=== PATIENT | female | born 1930 | race Caucasian/White ===

== ENCOUNTER 2018-01-13 07:19 | Outpatient (CLI) | payer MEDICARE ==
--- NOTE | 2018-01-13 09:03 | ULT ---
HEPATIC ULTRASOUND WITH DOPPLER: Date: 01-13-18 Provided Clinical History: Abdominal pain. FINDINGS: The visualized abdominal aorta, IVC, and pancreas appear normal. The liver demonstrates no mass or in trahepatic biliary ductal dilatation. Common duct is not dilated. The gallbladder is not visualized c ompatible with provided clinical history of prior cholecystectomy. The spleen is not enlarged and dem onstrates no significant abnormality . Color doppler and spectral analysis of the hepatic arterial, hepatic portal, hepatic venous, splenic arterial and splenic venous waveforms demonstrates normal direction of flow. IMPRESSION: Unremarkable hepatic ultrasound with doppler. POS: [facility]
== END 2018-01-13 07:20 | disposition home or self-care (01) ==
LOC: BICULT 07:19
PROVIDERS: ATTEND Internal Medicine
DX: R10.11 Right upper quadrant pain (principal); R11.0 Nausea; R10.13 Epigastric pain; Z90.49 Acquired absence of other specified parts of digestive tract
CPT/HCPCS: 76705

== ENCOUNTER 2018-08-05 10:01 | Observation (INO) | payer MEDICARE ==
[2018-08-05] MEDS ORDERED: Meclizine HCl 25 MG TAB ONE (10:33)
[2018-08-05] MEDS ORDERED: Nitroglycerin 2% Ointment 1 INCH/1 GM Packet ONE (10:33)
[2018-08-05 10:39] LABS: #Basophils 0.1 thou/uL (0.0-0.2); #Monocytes 0.3 thou/uL (0.11-0.59); #Neutrophils 2.8 thou/uL (1.40-6.50); %Basophils 1.4 % (0.0-1.0); %Eosinophils 1.1 % (0.0-10.0); %Lymphocytes 23.5 % (21.0-51.0); %Monocytes 6.2 % (0.0-10.0); %Neutrophils 67.7 % (42.0-75.0); Hemoglobin 14.8 g/dL (12.0-16.0); Mean Corpuscular HGB CONC 35.2 g/dL (32.0-36.0); Mean Corpuscular Hemoglobin 34.5 pg (27.0-31.0); Mean Corpuscular Volume 98.1 fL (78.0-98.0); Mean Platelet Volume 8.3 fL (7.4-10.4); Platelet Count 159 thou/uL (130-400); RBC Distribution Width 11.5 % (11.5-14.5); Red Blood Cell (RBC) Count 4.28 mill/uL (4.20-5.40); White Blood Cell (WBC) Count 4.1 thou/uL (4.8-10.8)
--- NOTE | 2018-08-05 10:52 | CT ---
CT Brain WO Con HISTORY: Syncope, dizziness. COMPARISON: None. FINDINGS: There is generalized ventricular and sulcal prominence. There are no signs of intracerebral hemorrhage or extra-axial fluid collections. The mastoid air cells and visualized sinuses are clear. IMPRESSION: No acute intracranial abnormalities.
[2018-08-05] MEDS ORDERED: Labetalol HCl 100 MG/20 ML VIAL ONE (10:58)
[2018-08-05 10:59] LABS: ALT (SGPT) 10 U/L (8-55); AST (SGOT) 16 U/L (5-34); Albumin 4.8 g/dL (3.4-4.8); Alkaline Phosphatase 72 U/L (40-150); Anion Gap 16 mmol/L (10-20); BUN (Urea Nitrogen) 15 mg/dL (9.8-20.1); Bilirubin, Total 0.7 mg/dL (0.2-1.2); CK (CPK) 37 U/L (29-168); Calc. Creatinine Clearance 0 mL/min (70-130); Carbon Dioxide 27 mmol/L (23-31); Chloride 102 mmol/L (98-107); Estimated GFR-MDRD Greater than 90; Globulin 2.6 g/dL (2.4-3.5); Glucose 96 mg/dL (83-110); Potassium 4.8 mmol/L (3.5-5.1); Protein, Total 7.4 g/dL (6.0-8.3); Sodium 140 mmol/L (136-145)
[2018-08-05 13:57] LABS: Troponin I 0.015 ng/mL (< 0.028)
[2018-08-05 16:56] LABS: Troponin I 0.019 ng/mL (< 0.028)
[2018-08-05] MEDS ORDERED: Acetaminophen 325 MG TAB PO SCH (17:45)
[2018-08-05] MEDS: Nitroglycerin 2% Ointment 1 INCH/1 GM Packet TOP SCH ×2 (17:58→23:53)
[2018-08-05] MEDS ORDERED: hydrALAZINE 20 MG/ML VIAL SLOW IVP PRN (20:10)
[2018-08-05] MEDS ORDERED: Acetaminophen 500 MG TAB PO PRN (20:10)
[2018-08-05] MEDS ORDERED: Meclizine HCl 12.5 MG TAB PO PRN (20:15)
--- NOTE | 2018-08-05 23:27 | HP ---
CHIEF COMPLAINT: Dizziness. HISTORY OF PRESENT ILLNESS: The patient is an 88-year-old female with past medical history significant for vertigo and borderline hypertension, who presented to the ER today with complaints of dizziness that began this morning. The patient describes the sensation as if she is spinning in place. She does report mild nausea associated with this sensation. When she sat up in bed this morning , she could not read the numbers on her digital clock secondary to her dizziness. She states the numbers were all blended together. She got out of bed and performed some exercises she had been taught in the past to help combat her vertigo, which included going from seated position to standing multiple times. This did not relieve her symptoms, and she got back in bed and called her son to take her to the emergency room. The patient denies any chest pain or shortness of breath. She had no emesis. She denies any feeling of lightheadedness or presyncope. On arrival to the ER, her blood pressure was significantly elevated with systolic greater than 200. She was given labetalol 10 mg IV, nitroglycerin paste, and one dose of meclizine in the ER. Her blood pressure did continue to trend down. Her dizziness upon my interview is much improved, and her vision changes have resolved at this time. 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 She has been seen by an ENT in the past, and has undergone dizzy and balance therapy in the past as well. Regarding her hypertension, she states that she was on blood pressure medication many years ago; however, she discontinued this on her own and watches her blood pressure at home. She states that readings typically at home read in the one teens systolic. ALLERGIES: SULFA DRUGS. HOME MEDICATIONS: 1. Vitamin B12 injections. 2. Pantoprazole 40 mg daily. PAST MEDICAL HISTORY: Significant for gastritis and GERD. Borderline hypertension as mentioned. Diagnosed benign paroxysmal positional vertigo. PAST SURGICAL HISTORY: Cataract removal, status post 3 left breast biopsies which were benign, and cholecystectomy. FAMILY HISTORY: Noncontributory. SOCIAL HISTORY: The patient has largely enjoyed good health and does live alone. She performs all of her own ADLs. No history of smoking, alcohol use, or illicit drug use. REVIEW OF SYSTEMS: A 12-point review of systems performed and is negative except that stated above. PHYSICAL EXAMINATION: VITAL SIGNS: Blood pressure 138/67, pulse 78, temperature 98, and O2 saturation 97% on room air. GENERAL: The patient is a thin elderly female, well appearing, in no acute distress. HEENT: Head is atraumatic and normocephalic. Mucous membranes are moist. NECK: Supple. No lymphadenopathy. No JVD. 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 CV: S1 and S2. Regular rate and rhythm. No appreciable murmurs, rubs, or gallops. LUNGS: Regular respiratory rate and pattern. Clear to auscultation bilaterally. ABDOMEN: Soft, flat. Positive bowel sounds. Nontender. SKIN: Warm and dry. No rashes. MUSCULOSKELETAL: No joint effusions or deformities. EXTREMITIES: No edema. NEUROLOGIC: Cranial nerves 2 through 12 are intact. The patient is nonfocal. LABORATORY DATA: White blood cell count 4.1, hemoglobin 14.8, hematocrit 41.9, and platelet count 159. Sodium 140, potassium 4.8, BUN 15, and creatinine 0.6. Troponin negative x3. BNP 99. Calcium 10.0. AST, ALT, and alkaline phosphatase all within normal limits. Brain CT, no acute intracranial abnormalities. ASSESSMENT: 1. Dizziness, consistent with benign paroxysmal positional vertigo with temporary vision changes which have resolved. 2. Accelerated hypertension ? contributing to presenting symptoms 3. History of gastritis/gastroesophageal reflux disease. 4. Vitamin B12 deficiency, which is treated. PLAN: Although the patient's symptoms are consistent with BPPV, we will obtain MRI to rule out possible vertebrobasilar CVA. Regarding her blood pressure, we will continue to monitor closely, but likely the patient will need to start an antihypertensive regimen either with low-dose lisinopril or amlodipine. She follows with Dr. Roseanne Mzea who is her PCP. Expect that if her MRI is negative and her symptoms continue to improve, that she will be discharged tomorrow with outpatient ENT followup if MRI is negative. Care of this patient has been discussed with Dr. Enriquez who agrees with the above. Job ID: [id number] MTDD
[2018-08-06] MEDS ORDERED: Lorazepam 2 MG/ML VIAL SLOW IVP PRN (08:09)
[2018-08-06] MEDS ORDERED: Meclizine HCl 12.5 MG TAB PO SCH (10:00)
--- NOTE | 2018-08-06 10:51 | ULT ---
Carotid duplex sonogram HISTORY: Dizziness. Vascular disease. FINDINGS: Right: Scattered plaque. Color and spectral Doppler evaluation, peak systolic velocity of 130 cm/s, a nd IC to CC ratio of 1.2 suggests stenosis within the proximal right ICA to approaches 50%. Antegrade flow is present within the vertebral artery. Left: Scattered plaque. Color and spectral Doppler evaluation, the systolic velocity of 142 cm/s, and IC to CC ratio of 2.0 suggest mild stenosis within the proximal left ICA. Antegrade flow within the vertebral artery. IMPRESSION: Atherosclerosis. Elevated velocities within the proximal portion of each internal carotid artery, greater on the left, where stenosis is estimated at 50-69%. Please consider conventional or CT arteriography for better detail.
--- NOTE | 2018-08-06 12:54 | MRI ---
Exam: Brain MRI without contrast HISTORY: Vision changes. Dizziness. COMPARISON: 12/17/2001 FINDINGS: Calvarial marrow signal intensity: Appropriate T1 signal Gradient echo sequence: No hemorrhage Brain parenchyma: No mass, mass effect or midline shift. Brain volume, age-appropriate. Midline brain parenchymal structures are unremarkable. Cortical riley-white matter differentiation: Preserved Restricted diffusion: Central arterial flow voids are maintained. Absent restricted diffusion White matter signal intensities: T2, FLAIR white matter hyperintensities due to chronic small vessel ischemic changes Bilateral ocular lens implants are noted and appear to be appropriately positioned. Sinuses: Adequate aeration of the paranasal sinuses and mastoid air cells. IMPRESSION: Absent restricted diffusion. No acute infarct.
[2018-08-06] MEDS ORDERED: Lisinopril 5 MG TAB PO SCH (14:00)
[2018-08-06 14:35] VITALS: BMI 19.2
[2018-08-06 16:23] VITALS: BP 121/58; TEMP 98.8
== END 2018-08-06 17:41 | disposition home or self-care (01) ==
LOC: ERS 10:01 → ERHOLD 12:14 → 2SW 15:12
PROVIDERS: ADMIT Internal Medicine; ATTEND Internal Medicine
DX: H81.10 Benign paroxysmal vertigo, unspecified ear (principal); K21.9 Gastro-esophageal reflux disease without esophagitis; I65.23 Occlusion and stenosis of bilateral carotid arteries; I10 Essential (primary) hypertension; Z79.899 Other long term (current) drug therapy; Z88.2 Allergy status to sulfonamides
CPT/HCPCS: 70450; 70551; 80053; 82550; 83880; 84484 ×2; 85025; 93005; 93880; 96374; 96375; 97139; 99285; G0378 ×2; 36415; J0360; J2060; J8499; J8597

== ENCOUNTER 2018-11-10 08:54 | Outpatient (CLI) | payer MEDICARE ==
[2018-11-10 10:15] LABS: Estimated GFR-MDRD - POC Greater than 90
--- NOTE | 2018-11-10 10:36 | CT ---
CT ABDOMEN WITH CONTRAST: 11/10/18 HISTORY: 88-year-old female with mid epigastric pain, R10.13. TECHNIQUE: IV contrast: 70 mL of Isovue 370. Oral contrast: Administered. Pelvis not ordered and not scanned. FINDINGS: Normal liver. No splenomegaly. No hydronephrosis. Bilateral nephrograms are homogeneous, with no cruz d or cystic mass identified. No adrenal nodule. No signs of acute pancreatitis or pancreatic mass. No ascites. No small bowel dilation. Transverse colon and the hepatic and splenic flexures demonstrate no obvious abnormality. No retroperitoneal lymphadenopathy. Atherosclerotic calcification of abdomina l aorta without aneurysm. Lung bases are clear of consolidation and pleural effusion. Surgical clips in the gallbladder fossa. IMPRESSION: 1. Status post cholecystectomy. 2. Otherwise negative. POS: [facility]
== END 2018-11-10 08:55 | disposition home or self-care (01) ==
LOC: BICCT 08:54
PROVIDERS: ATTEND Internal Medicine Gastroenterology
DX: R10.13 Epigastric pain (principal); Z90.49 Acquired absence of other specified parts of digestive tract
CPT/HCPCS: 74160; 82565

== ENCOUNTER 2019-01-01 08:13 | Outpatient (CLI) | payer MEDICARE ==
[2019-01-01 09:01] LABS: Estimated GFR-MDRD - POC Greater than 90
--- NOTE | 2019-01-01 09:45 | MRI ---
MRI BRAIN AND INTERNAL AUDITORY CANALS WITH AND WITHOUT CONTRAST: Date: 01/01/2019 HISTORY: 88-year-old female with bilateral sensorineural hearing loss, vertigo, and dizziness. TECHNIQUE: Multiplanar, multisequence MRI, both whole brain images and thin slices through the IACs, pre and pos t IV injection of gadolinium-based contrast agent. FINDINGS: There is no obstructive hydrocephalus. There is no midline shift or any other evidence of mass effect . There is no extra-axial fluid collection. There is a mild-moderate degree of T2-hyperintensities in the cerebral white matter consistent with chronic ischemic white matter changes due to microvascul ar atherosclerosis. There is no abnormal enhancement, mass, recent hemorrhage, or restricted diffusion. There is no abnormal enhancement, mass, or morphologic abnormality, involving the cerebellopontine an gles, 7th-8th nerve complexes, internal auditory canals, cochleae, vestibules, vestibular aqueducts, or semicircular canals. There is a 4.5 x 3.5 cm mass in the superficial left posterior subcutaneous upper neck with T1 shorte erlinda probably representing a lipoma (Seen only on the large [id number] sagittal T1-weighted sequence of the whole brain). IMPRESSION: 1) mild-moderate chronic ischemic white matter changes. 2) otherwise negative. 3) left posterior upper neck mass, incompletely imaged. Presumably a lipoma. Recommend clinical corre lation.
[2019-01-01] MEDS ORDERED: Gadobenate Dimeglumine 529 MG/1 ML (20ML VIAL) ONE (12:59)
== END 2019-01-01 08:14 | disposition home or self-care (01) ==
LOC: BICMRI 08:13
PROVIDERS: ATTEND Otolaryngology
DX: H90.3 Sensorineural hearing loss, bilateral (principal); R42 Dizziness and giddiness; I67.82 Cerebral ischemia; R22.1 Localized swelling, mass and lump, neck
CPT/HCPCS: 70553; 82565; A9577

== ENCOUNTER 2020-09-14 13:58 | Inpatient (IN) | payer OTHER, MEDICARE ==
[2020-09-14] MEDS ORDERED: Morphine 2 MG/ML VIAL ONE ×2 (15:40→17:37)
[2020-09-14] MEDS ORDERED: Ondansetron PF 4 MG/2 ML Vial ONE (15:40)
[2020-09-14 15:42] LABS: #Lymphocytes 0.6 thou/uL (1.20-3.40); #Monocytes 0.6 thou/uL (0.11-0.59); #Neutrophils 8.5 thou/uL (1.40-6.50); %Basophils 0.3 % (0.0-1.0); %Eosinophils 0.3 % (0.0-10.0); %Lymphocytes 6.2 % (21.0-51.0); %Monocytes 5.7 % (0.0-10.0); %Neutrophils 87.5 % (42.0-75.0); Hemoglobin 13.9 g/dL (12.0-16.0); Mean Corpuscular HGB CONC 35.4 g/dL (32.0-36.0); Mean Corpuscular Hemoglobin 34.9 pg (27.0-31.0); Mean Corpuscular Volume 98.6 fL (78.0-98.0); Mean Platelet Volume 8.1 fL (7.4-10.4); Platelet Count 141 thou/uL (130-400); RBC Distribution Width 11.6 % (11.5-14.5); Red Blood Cell (RBC) Count 3.99 mill/uL (4.20-5.40); White Blood Cell (WBC) Count 9.7 thou/uL (4.8-10.8)
[2020-09-14 16:03] LABS: ALT (SGPT) 13 U/L (8-55); AST (SGOT) 17 U/L (5-34); Albumin 4.5 g/dL (3.4-4.8); Alkaline Phosphatase 64 U/L (40-110); Anion Gap 14 mmol/L (10-20); BUN (Urea Nitrogen) 19 mg/dL (9.8-20.1); Bilirubin, Total 0.6 mg/dL (0.2-1.2); Calc. Creatinine Clearance 0 mL/min (70-130); Calcium 9.4 mg/dL (7.8-10.44); Carbon Dioxide 25 mmol/L (23-31); Chloride 102 mmol/L (98-107); Globulin 2.7 g/dL (2.4-3.5); Glucose 126 mg/dL (83-110); Protein, Total 7.2 g/dL (5.8-8.1); Sodium 137 mmol/L (136-145)
[2020-09-14] MEDS ORDERED: Dextrose 5% in Water 1,000 ML IV PRN (16:23)
[2020-09-14] MEDS ORDERED: Ondansetron ODT 4 MG TAB PO PRN (16:23)
[2020-09-14] MEDS ORDERED: Dextrose 50% Abboject 50 ML SYRINGE SLOW IVP PRN (16:23)
[2020-09-14] MEDS ORDERED: Ondansetron PF 4 MG/2 ML Vial IVP PRN (16:23)
[2020-09-14] MEDS ORDERED: Morphine 2 MG/ML VIAL SLOW IVP PRN (16:30)
[2020-09-14] MEDS ORDERED: hydrALAZINE 20 MG/ML VIAL SLOW IVP PRN (16:30)
[2020-09-14] MEDS ORDERED: Cyclobenzaprine 10 MG TAB PO PRN (16:42)
[2020-09-14] MEDS ORDERED: traMADol HCl 50 MG TAB PO PRN (16:42)
[2020-09-14 17:32] LABS: Phosphorus 2.7 mg/dL (2.3-4.7)
[2020-09-14] MEDS: Famotidine 20 MG TAB PO SCH (20:41)
[2020-09-14] MEDS: Senokot S 8.6-50 MG TAB PO SCH (20:52)
[2020-09-14] MEDS: Ketorolac Tromethamine 30 MG/ML VIAL IVP SCH ×2 (20:52→23:29)
[2020-09-14] MEDS: traMADol HCl 50 MG TAB PO SCH ×2 (20:52→23:16)
[2020-09-14] MEDS: Acetaminophen 500 MG TAB PO SCH ×2 (20:52→23:15)
[2020-09-14] MEDS ORDERED: CEFAZOLIN 2 GM in Premix Bag 1 BAG IVPB SCH (21:30)
[2020-09-14] MEDS ORDERED: Sodium Chloride 0.9% 1,000 ML IV SCH (23:59)
[2020-09-15] MEDS: traMADol HCl 50 MG TAB PO SCH ×4 (05:26→21:53)
[2020-09-15] MEDS: Acetaminophen 500 MG TAB PO SCH ×4 (05:26→21:54)
[2020-09-15] MEDS: Ketorolac Tromethamine 30 MG/ML VIAL IVP SCH ×3 (05:45→17:34)
[2020-09-15 05:46] LABS: #Eosinphils 0.1 thou/uL (0.0-0.7); #Lymphocytes 0.9 thou/uL (1.20-3.40); #Monocytes 0.7 thou/uL (0.11-0.59); #Neutrophils 3.2 thou/uL (1.40-6.50); %Basophils 0.5 % (0.0-1.0); %Eosinophils 1.7 % (0.0-10.0); %Lymphocytes 17.7 % (21.0-51.0); %Monocytes 14.3 % (0.0-10.0); %Neutrophils 65.8 % (42.0-75.0); Hemoglobin 12.1 g/dL (12.0-16.0); Mean Corpuscular HGB CONC 34.3 g/dL (32.0-36.0); Mean Corpuscular Hemoglobin 34.3 pg (27.0-31.0); Mean Platelet Volume 7.8 fL (7.4-10.4); Platelet Count 122 thou/uL (130-400); RBC Distribution Width 11.5 % (11.5-14.5); Red Blood Cell (RBC) Count 3.51 mill/uL (4.20-5.40); White Blood Cell (WBC) Count 4.9 thou/uL (4.8-10.8)
[2020-09-15 06:56] LABS: SARS-CoV-2 NAA Rapid Test Not Detected (NotDetected)
[2020-09-15 07:07] LABS: Calcium 8.7 mg/dL (7.8-10.44); Chloride 102 mmol/L (98-107); Potassium 4.1 mmol/L (3.5-5.1); Sodium 136 mmol/L (136-145)
[2020-09-15 07:08] LABS: Glucose 108 mg/dL (83-110)
[2020-09-15 07:09] LABS: Anion Gap 6 mmol/L (10-20); Carbon Dioxide 32 mmol/L (23-31)
[2020-09-15 07:11] LABS: Calc. Creatinine Clearance 56 mL/min (70-130); Phosphorus 3.1 mg/dL (2.3-4.7)
[2020-09-15 07:12] LABS: BUN (Urea Nitrogen) 14 mg/dL (9.8-20.1)
[2020-09-15 07:13] LABS: Magnesium 1.9 mg/dL (1.6-2.6)
[2020-09-15] MEDS: Famotidine 20 MG TAB PO SCH ×2 (08:08→21:53)
[2020-09-15] MEDS: Polyethylene Glycol 3350 17 GM Packet PO SCH (08:09)
[2020-09-15] MEDS: Senokot S 8.6-50 MG TAB PO SCH ×2 (08:09→21:55)
[2020-09-15] MEDS ORDERED: Fentanyl 100 MCG/2 ML VIAL ONE ×2 (10:03→12:23)
[2020-09-15] MEDS ORDERED: Rocuronium Bromide 10 MG/ML (10ML VIAL) ONE (10:24)
[2020-09-15] MEDS ORDERED: Dexamethasone 20 MG/5 ML VIAL ONE (10:24)
[2020-09-15] MEDS ORDERED: PHENYLEPHRINE-NS 100 MCG/ML 10 ML SYRINGE ONE (10:24)
[2020-09-15] MEDS ORDERED: Glycopyrrolate 0.2 MG/ML 5 ML SYRINGE ONE (10:24)
[2020-09-15] MEDS ORDERED: Lidocaine 1% PF 5 ML VIAL ONE (10:24)
[2020-09-15] MEDS ORDERED: Ondansetron PF 4 MG/2 ML Vial ONE (10:24)
[2020-09-15] MEDS ORDERED: PROPOFOL 200 MG/20 ML VIAL ONE (10:24)
[2020-09-15] MEDS ORDERED: Promethazine HCl 25 MG/ML VIAL IVPB PRN (11:05)
[2020-09-15] MEDS ORDERED: PACU-Morphine 4MG/ML VIAL SLOW IVP PRN (11:05)
[2020-09-15] MEDS ORDERED: Promethazine HCl 25 MG/ML VIAL IM PRN (11:05)
[2020-09-15] MEDS ORDERED: Meclizine HCl 12.5 MG TAB PO PRN (17:46)
[2020-09-15] MEDS: CEFAZOLIN 2 GM in Premix Bag 1 BAG IVPB SCH (17:50)
[2020-09-15] MEDS ORDERED: Cepastat Lozenges 1 LOZ PO PRN (18:01)
[2020-09-16] MEDS: Ketorolac Tromethamine 30 MG/ML VIAL IVP SCH ×4 (00:56→18:19)
[2020-09-16] MEDS: CEFAZOLIN 2 GM in Premix Bag 1 BAG IVPB SCH (00:57)
[2020-09-16 05:38] LABS: #Eosinphils 0.1 thou/uL (0.0-0.7); #Lymphocytes 0.6 thou/uL (1.20-3.40); %Basophils 0.3 % (0.0-1.0); %Lymphocytes 9.5 % (21.0-51.0); %Monocytes 14.4 % (0.0-10.0); %Neutrophils 74.9 % (42.0-75.0); Mean Corpuscular Hemoglobin 33.9 pg (27.0-31.0); Mean Corpuscular Volume 99.9 fL (78.0-98.0); Mean Platelet Volume 7.6 fL (7.4-10.4); Platelet Count 109 thou/uL (130-400); RBC Distribution Width 11.5 % (11.5-14.5); Red Blood Cell (RBC) Count 2.95 mill/uL (4.20-5.40); White Blood Cell (WBC) Count 6.7 thou/uL (4.8-10.8)
[2020-09-16 05:50] LABS: Anion Gap 8 mmol/L (10-20); BUN (Urea Nitrogen) 17 mg/dL (9.8-20.1); Calc. Creatinine Clearance 47 mL/min (70-130); Carbon Dioxide 32 mmol/L (23-31); Chloride 98 mmol/L (98-107); Potassium 3.8 mmol/L (3.5-5.1); Sodium 134 mmol/L (136-145)
[2020-09-16 05:51] LABS: Calcium 8.5 mg/dL (7.8-10.44); Glucose 110 mg/dL (83-110); Magnesium 1.7 mg/dL (1.6-2.6)
[2020-09-16] MEDS: Acetaminophen 500 MG TAB PO SCH ×3 (05:52→18:17)
[2020-09-16] MEDS: traMADol HCl 50 MG TAB PO SCH ×3 (05:52→17:13)
[2020-09-16 05:55] LABS: Phosphorus 3.1 mg/dL (2.3-4.7)
[2020-09-16] MEDS ORDERED: Enoxaparin Sodium 40 MG/0.4 ML SYRINGE SC SCH (09:00)
[2020-09-16] MEDS: Famotidine 20 MG TAB PO SCH (10:06)
[2020-09-16] MEDS: Senokot S 8.6-50 MG TAB PO SCH (10:07)
[2020-09-16] MEDS: Polyethylene Glycol 3350 17 GM Packet PO SCH (10:07)
[2020-09-16] MEDS ORDERED: Magnesium Sulfate 3 GM in Sodium Chloride 0.9% 100 ML IV SCH (12:30)
[2020-09-16 19:11] VITALS: BP 143/54; TEMP 98.2
[2020-10-04] MEDS ORDERED: Cyanocobalamin 1000 MCG/ML VIAL IM SCH (09:00)
== END 2020-09-16 19:12 | DRG 522 ==
LOC: ERS 13:58 → SURG A 16:37
PROVIDERS: ADMIT Surgery; ATTEND Surgery
PROC: 0SRS0J9 Replacement of Left Hip Joint, Femoral Surface with Synthetic Substitute, Cemented, Open Approach (ICD-10-PCS; principal; 2020-09-15)
DX: S72.002A Fracture of unspecified part of neck of left femur, initial encounter for closed fracture (principal); W01.0XXA Fall on same level from slipping, tripping and stumbling without subsequent striking against object, initial encounter; Z20.822 Contact with and (suspected) exposure to COVID-19; Y93.H2 Activity, gardening and landscaping; Z90.49 Acquired absence of other specified parts of digestive tract; Z98.890 Other specified postprocedural states; Z88.2 Allergy status to sulfonamides
CPT/HCPCS: 36415; 71045; 72170; 80048; 80053; 83735; 84100; 85025; 93005; 96374; 96375; 96376; C1713; J0690; J1650; J1885; J2270; J2405; J3010; J3475; J3490; U0002; U0003; U0005

== ENCOUNTER 2020-10-10 09:03 | Outpatient (CLI) | payer MEDICARE | END 2020-10-10 09:04 | disposition home or self-care (01) | LOC: BICRAD 09:03 | PROVIDERS: ATTEND Internal Medicine | DX: M25.552 Pain in left hip (principal); M25.562 Pain in left knee; M54.5 Low back pain; M47.816 Spondylosis without myelopathy or radiculopathy, lumbar region; M43.17 Spondylolisthesis, lumbosacral region; Z96.642 Presence of left artificial hip joint | CPT/HCPCS: 72100 ==

== ENCOUNTER 2020-11-22 09:18 | Outpatient (CLI) | payer MEDICARE | END 2020-11-22 09:19 | disposition home or self-care (01) | LOC: BICCT 09:18 | PROVIDERS: ATTEND Internal Medicine | DX: S09.90XA Unspecified injury of head, initial encounter (principal); R51.9 Headache, unspecified; I67.89 Other cerebrovascular disease; R90.89 Other abnormal findings on diagnostic imaging of central nervous system | CPT/HCPCS: 70450 ==

== ENCOUNTER 2020-12-06 08:30 | Outpatient (CLI) | payer MEDICARE | END 2020-12-06 08:31 | disposition home or self-care (01) | LOC: BICMAMMO 08:30 | PROVIDERS: ATTEND Internal Medicine | DX: Z13.820 Encounter for screening for osteoporosis (principal); M81.0 Age-related osteoporosis without current pathological fracture | CPT/HCPCS: 77080 ==

== ENCOUNTER 2021-05-23 12:26 | Outpatient (CLI) | payer MEDICARE | END 2021-05-23 12:27 | disposition home or self-care (01) | LOC: BICULT 12:26 | PROVIDERS: ATTEND Internal Medicine | DX: G45.9 Transient cerebral ischemic attack, unspecified (principal); I65.21 Occlusion and stenosis of right carotid artery | CPT/HCPCS: 93880 ==